=== PATIENT | female | born 2005 | race Caucasian/White ===

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

== ENCOUNTER 2025-01-22 20:30 | Emergency (ER) | payer MEDICAID ==
[2025-01-22] MEDS: Lidocaine 2% Viscous Solution 15 ML UD PO ONE (20:55)
== END 2025-01-22 21:19 ==
LOC: MW.ED 20:30
DX: J02.9 Acute pharyngitis, unspecified (principal); Z88.8 Allergy status to other drugs, medicaments and biological substances; Z75.3 Unavailability and inaccessibility of health-care facilities
CPT/HCPCS: 87651; 96374; 99284; A9270; J1100; 99282